=== PATIENT | female | born 1975 | race Two or more races ===

== ENCOUNTER 2021-01-31 17:22 | Emergency (ER) | payer OTHER ==
[~2021-01-31] VITALS: Ht 162.6 cm; Wt 101.6 kg
--- NOTE | 2021-01-31 17:40 | NUR ---
CC OF RLQ PAIN FOR 3 DAYS. NON RADIATING. DENIES PAIN AND URGENCY WITH URINATION. LAST PERIOD LAST WEEK. DENIES FEVER,CHILLS N/V, HAS HAD ONE EPISODE OF DIARRHEA TODAY.
[2021-01-31 18:10] LABS: MICROSCOPIC AUTO
[2021-01-31 18:26] LABS: BASOPHILS % (AUTO) 1 % (0-1); EOSINOPHILS % (AUTO) 3 % (1-7); LYMPHOCYTES % (AUTO) 39 % (22-44); MEAN CORPUSCULAR HEMOGLOBIN 27.1 pg (27.0-34.8); MEAN CORPUSCULAR HGB CONC 33.1 g/dL (32.4-35.8); MEAN PLATELET VOLUME 7.6 fL (7.4-10.4); MONOCYTES % (AUTO) 7 % (2-9); NEUTROPHILS % (AUTO) 50 % (42-75); PLATELET COUNT 359 x10^3/uL (130-400); RED BLOOD COUNT 4.85 x10^6/uL (3.82-5.3); RED CELL DISTRIBUTION WIDTH 14.6 % (9.6-15.2)
[2021-01-31 18:27] LABS: ALANINE AMINOTRANSFERASE 32 U/L (12-78); ALBUMIN 3.8 g/dL (3.4-5.0); ANION GAP 7 mmol/L (5-15); CALCIUM 8.5 mg/dL (8.5-10.1); CHLORIDE 108 mmol/L (98-107); CREATININE 0.79 mg/dL (0.55-1.02)
[2021-01-31 18:32] LABS: ALKALINE PHOSPHATASE 76 U/L (45-117); BILIRUBIN,TOTAL 0.5 mg/dL (0.2-1.0); TOTAL PROTEIN 7.5 g/dL (6.4-8.2)
[2021-01-31 19:29] VITALS: BP 137/78
== END 2021-01-31 19:31 | disposition home or self-care (01) ==
LOC: ED 19:13
DX: N30.00 Acute cystitis without hematuria (principal); N83.292 Other ovarian cyst, left side; N83.291 Other ovarian cyst, right side; N85.2 Hypertrophy of uterus
CPT/HCPCS: 36415; 76830; 80053; 81001; 83690; 84703; 85025; 87086; 99284

== ENCOUNTER → 2021-05-12 | Outpatient (CLI) | payer OTHER ==
[~2021-05-12] MED LIST: GADOTERATE 10 MMOL/20ML SYR ONE
== END | disposition home or self-care (01) ==
LOC: CFH 13:20
PROVIDERS: ATTEND Obstetrics & Gynecology Gynecology
DX: Z12.31 Encounter for screening mammogram for malignant neoplasm of breast (principal); D25.9 Leiomyoma of uterus, unspecified; N85.4 Malposition of uterus; D25.1 Intramural leiomyoma of uterus; N83.02 Follicular cyst of left ovary
CPT/HCPCS: 72197; 77063; 77067; A9575